=== PATIENT | female | born 1985 | race Caucasian/White ===

== ENCOUNTER 2023-10-18 19:38 | Emergency (ER) | payer OTHER, SELFPAY ==
[2023-10-18 19:42] VITALS: BP 130/85; PULSE 86; TEMP 36.9; O2SAT 98; BMI 32.4
--- NOTE | 2023-10-18 19:49 | XR_ITS ---
The [address] [address] Patient Name: FATEMEH DAVIDSON MRN: [id number] date: 1985 Sex: F Assigned Patient Location: ER Current Patient Location: ED.MAIN Accession/Order Number: [id number] Exam Date: 10/18/2023 19:58 Report Date: 10/18/2023 20:41 At the request of: JESS GOETZ Procedure: XR hand LT min 3V EXAM: XR hand LT min 3V HISTORY: index finger injury COMPARISON: None. TECHNIQUE: 3 views left hand FINDINGS: No acute fracture or aggressive osseous abnormality. Joint and alignment is preserved. Moderate degenerative change of the first carpometacarpal joint. Suggestion of negative ulnar variance. XR/XR hand LT min 3V IMPRESSION: No acute osseous abnormality of the left hand. Electronically authenticated by: DAMEON ALFRED Date: 10/18/2023 20:41
--- NOTE | 2023-10-18 19:50 | ED.UPPEXIN1 ---
HPI HPI - Extremity Injury (Upper) General Chief Complaint: Extremity Injury, Upper Stated Complaint: UPPER EXTREMITY INJURY-WORK Time Seen by Provider: 10/18/23 19:44 Source: patient Mode of arrival: walk-in Limitations: no limitations History of Present Illness HPI narrative: describes banging her finger on a piece of metal at work yesterday. Points to dorsal left index PIP joint abrasion. States since then she has developed a purplish discoloration and mild swelling of the finger. no other injury or complaint Related Data Home Medications ?Medication ?Instructions ?Recorded ?Confirmed cariprazine 3 mg capsule (Vraylar) 3 mg PO DAILY 10/18/23 10/18/23 dextroamphetamine-amphetamine 20 20 mg PO BID 10/18/23 10/18/23 mg tablet (Adderall) hydroxyzine pamoate 25 mg capsule 10 mg PO TID PRN anxiety 10/18/23 10/18/23 metformin 500 mg tablet 500 mg PO DAILY 10/18/23 10/18/23 Allergies Allergy/AdvReac Type Severity Reaction Status Date / Time dexamethasone [From Decadron] Allergy Unknown Verified 10/18/23 19:48 lamotrigine [From Lamictal] Allergy Swelling Verified 10/18/23 19:48 of Lip/Tongue/Throat Opioid HPI Opioid Management Most Recent Pain and Opioid Data: Last Pain Scale 7 10/18/23 19:56 Last ED Pain Assessment 10/18/23 19:55 Review of Systems ROS Status of ROS 10 or more systems reviewed and unremarkable except as noted in history and below Exam Constitutional Vital Signs, click to edit/add: Last Vital Signs Temp 98.5 F 10/18/23 19:42 Pulse 86 10/18/23 19:42 Resp 16 10/18/23 19:42 BP 130/85 10/18/23 19:42 Pulse Ox 98 10/18/23 19:42 O2 Del Method Room Air 10/18/23 19:42 Common normals: no apparent distress, average body habitus, oriented x3, no limitations, healthy appearing, alert and well nourished [facility] Common normals: normocephalic and head/scalp atraumatic Respiratory Common normals: normal respiratory effort, no retractions, no use of accessory muscles and clear to auscultation bilaterally Cardio Common normals: regular rate, regular rhythm, S1 normal heart sound and S2 normal heart sound Extremity Other: minor abrasion dorsal left PIP. mild swelling distal phalanx same finger and faint purplish discoloration Neuro Common normals: oriented x3, CN's II-XII intact bilaterally, moves all extremities, no focal motor deficits and no sensory deficits noted Psych Appearance: grossly normal Course Vital Signs Vital signs: Vital Signs Temperature 98.5 F 10/18/23 19:42 Pulse Rate 86 10/18/23 19:42 Respiratory Rate 16 10/18/23 19:42 Blood Pressure 130/85 10/18/23 19:42 Pulse Oximetry 98 10/18/23 19:42 Oxygen Delivery Method Room Air 10/18/23 19:42 Temperature 98.5 F 10/18/23 19:42 Pulse Rate 86 10/18/23 19:42 Respiratory Rate 16 10/18/23 19:42 Blood Pressure 130/85 10/18/23 19:42 Pulse Oximetry 98 10/18/23 19:42 Oxygen Delivery Method Room Air 10/18/23 19:42 MDM - Extremity Injury (Upper) MDM Narrative Medical decision making narrative: presents one day after sustained an abrasion/contusion left index finger at work. xray neg for fracture. Does have mild abrasion and mild swelling. ROM limited more by swelling at PIP joint than pain. finger splinted and patient discharged home. She understands the splint is for comfort. She states she is not able to work her job unless she can wear gloves. Advised to have her finger rechecked friday 10/20 Imaging Data Chest x-ray: Radiologist's impression: ITS Impressions Hand X-Ray 10/18/23 19:49 IMPRESSION: No acute osseous abnormality of the left hand. Electronically authenticated by: DAMEON ALFRED Date: 10/18/2023 20:41 Discharge Plan Discharge Stand Alone Forms: Portal Instructions Chief Complaint: Extremity Injury, Upper Clinical Impression: Contusion of finger of left hand Patient Disposition: Home, Self-Care Prescriptions / Home Meds: No Action Vraylar 3 mg capsule 3 mg PO DAILY hydroxyzine pamoate 25 mg capsule 10 mg PO TID PRN (Reason: anxiety) metformin 500 mg tablet 500 mg PO DAILY dextroamphetamine-amphetamine [Adderall] 20 mg tablet 20 mg PO BID Rx Instructions: administer doses at least 4-6 hours apart Print Language: Nepali Instructions: Contusion in Adults (ED) Additional Instructions: [facility] with [facility] saturday Referrals: Physician,Non-Staff, MD [Primary Care Provider] - 1 week
[2023-10-18] MEDS: ADACEL DIPH,PERTUSS(ACELL),TET VAC/PF 0.5 ML ADULT SYRINGE IM (20:14)
== END 2023-10-18 21:05 | disposition home or self-care (01) ==
PROVIDERS: Emergency Provider Internal Medicine
DX: S60.022A Contusion of left index finger without damage to nail, initial encounter (principal); Z23 Encounter for immunization; W22.8XXA Striking against or struck by other objects, initial encounter
CPT/HCPCS: 29130; 73130; 90471; 90715; 99283